=== PATIENT | female | born 1950 | race Asian ===

== ENCOUNTER 2019-04-17 09:04 | Emergency (ER) | payer OTHER ==
[~2019-04-17] VITALS: Ht 149.9 cm; Wt 59.9 kg
[2019-04-17 09:11] VITALS: Ht 149.9 cm; Wt 59.9 kg
[2019-04-17 10:28] VITALS: BP 138/78
== END 2019-04-17 12:48 | disposition home or self-care (01) ==
LOC: ED 09:04
DX: M54.12 Radiculopathy, cervical region (principal); M50.30 Other cervical disc degeneration, unspecified cervical region; M47.9 Spondylosis, unspecified; I10 Essential (primary) hypertension; E78.00 Pure hypercholesterolemia, unspecified
CPT/HCPCS: J1885